=== PATIENT | male | born 1965 | race Hispanic/Latino ===

== ENCOUNTER → 2017-04-03 | Outpatient (CLI) | payer BC ==
--- NOTE | 2017-04-03 15:50 | Diagnostic Imaging Report ---
PROCEDURE:ABDOMINAL ULTRASOUND COMPARISON:None. INDICATIONS:Abdomen Pain FINDINGS: Liver: 16.4 cm. Mildly increased hepatic parenchymal echogenicity. No focal mass. Main portal vein: 1.2 cm. Hepatopetal flow. Gallbladder: Multiple echogenic shadowing, mobile stones are noted in the gallbladder lumen. No wall thickening, or pericholecystic fluid. Common Bile Duct: 0.5 cm. No echogenic filling defect. Sonographic Rider's sign: Negative Right kidney: 11.6 cm. No solid or cystic mass, echogenic calculi, or hydronephrosis. Normal parenchymal echogenicity. Left kidney: 11.2 cm. No solid or cystic mass, echogenic calculi, or hydronephrosis. Normal parenchymal echogenicity. Spleen: 8.6 cm. Pancreas: The visualized portions of the pancreas are normal. Inferior vena cava: Normal. Aorta: Normal. Ascites: None. CONCLUSION: 1. cholelithiasis, without sonographic evidence of cholecystitis. 2. Borderline to mild hepatomegaly with mild steatosis. No focal lesions. He Willis M.D. Dictated by: He Willis M.D. on 04/03/2017 at 15:59 Electronically approved by: He Willis M.D. on 04/03/2017 at 15:59
== END ==
LOC: RAD 13:19
PROVIDERS: ATTEND Internal Medicine
DX: R10.10 Upper abdominal pain, unspecified (principal)
CPT/HCPCS: 76700

== ENCOUNTER → 2024-10-22 | Day surgery (SDC) | payer BC ==
[~2024-10-22] MED LIST: BENICAR5 MG PO; CIALIS5 MG PO; FENTANYL CITRATE/PF 100MCG/2 ML INJ ONE; HYOSCYAMINE SULFATE 0.5 MG/ML INJ ONE; LIDOCAINE HCL 2% LOCAL INJ 5 ML SDV VIAL INJ ONE; MIDAZOLAM HCL 2 MG/2 ML VIAL ONE; ONDANSETRON HCL INJ 2MG/ML 2ML 2 MG/ML VIAL ONE; PROPOFOL IV EMULSION 50 ML IV ONE; SKYRIZI150 MG/1 M INJ; VITAMIN C500 MG PO; VITAMIN D3 PO
[2024-10-22] MEDS: LACTATED RINGER'S 1,000 ML ONE (07:36)
[2024-10-22 08:45] VITALS: BP 112/87; PULSE 68; RESP 16; TEMP 97.5; O2SAT 96
== END | disposition home or self-care (01) ==
LOC: OR 05:52
PROVIDERS: ATTEND Internal Medicine Gastroenterology
DX: Z12.11 Encounter for screening for malignant neoplasm of colon (principal); K63.5 Polyp of colon; K62.1 Rectal polyp; K57.30 Diverticulosis of large intestine without perforation or abscess without bleeding; K64.8 Other hemorrhoids; I10 Essential (primary) hypertension; Z01.810 Encounter for preprocedural cardiovascular examination; Z79.899 Other long term (current) drug therapy
CPT/HCPCS: 45380; 45385; 93005; J1980; J2003; J2250; J2405; J2704; J3010; J7121